=== PATIENT | female | born 1930 | race Hispanic/Latino ===

== ENCOUNTER → 2018-01-18 | Outpatient (CLI) | payer MEDICARE ==
[~2018-01-18] MED LIST: AMLO5TAB7 PO; APIX5TAB PO; BIMA12.5OS OU; BUME1TAB12 PO; DOCU100C33 PO; GABA-531 PO; ISOS30TA6 PO; METO-391 PO; POTA10CA44 PO; ROSU10TA27 PO
== END | disposition home or self-care (01) ==
LOC: SLP 20:37
PROVIDERS: ATTEND Internal Medicine
DX: G47.33 Obstructive sleep apnea (adult) (pediatric) (principal)
CPT/HCPCS: 95810

== ENCOUNTER → 2018-03-01 | Outpatient (CLI) | payer MEDICARE ==
[~2018-03-01] MED LIST changes: -AMLO5TAB7 PO; +AMLO5TAB9 PO
== END | disposition home or self-care (01) ==
LOC: SLP 20:00
PROVIDERS: ATTEND Internal Medicine
DX: G47.33 Obstructive sleep apnea (adult) (pediatric) (principal)
CPT/HCPCS: 95811